=== PATIENT | male | born 1975 | race Two or more races ===

== ENCOUNTER 2024-04-30 11:39 | Inpatient (IN) | payer BC, SELFPAY ==
[2024-04-30] VITALS (11 sets, daily range): BP systolic 151–206; BP diastolic 104–122; PULSE 70–96; RESP 18–22; TEMP 36.5–37; O2SAT 96–100; BMI 30.2
--- NOTE | 2024-04-30 11:57 | XR_ITS ---
Examination: Abdomen sonogram, Limited Date and time of exam: April 30, 2024 1231 hrs. Indications: Epigastric pain nausea vomiting beginning 2 days ago Technique: Real-time trinh scale transabdominal sonographic images of the upper abdomen obtained. Findings: Negative for gallstones Normal gallbladder wall Normal common bile duct 0.3 cm Pancreas obscured by bowel gas Liver 15.7 cm fatty infiltration no focal liver lesions Normal hepatopedal portal venous flow Patent IVC Impression: Normal gallbladder
--- NOTE | 2024-04-30 11:58 | PD.EDABDPN ---
ED Abdominal Pain RME/HPI General Chief Complaint: Abdominal Pain Stated complaint: LUQ ABD PAIN, N/V, SOB Time seen by provider: 04/30/24 11:56 Arrival date/time: 04/30/24 11:39 RME / HPI RME / HPI narrative: 48-year-old male patient with significant history of hypertension, diabetes mellitus, pancreatitis in the past, came in for evaluation regarding left upper quadrant pain. Onset of symptoms since yesterday as worsening left upper quadrant pain, described as sharp pain, severity 10 out of 10 associated with nausea, vomiting. Patient told me that he was admitted here more than a year ago tried to stop drinking but drinking alcohol again. Last drink was yesterday. Denies any other complaints. Related Data Home Medications ?Medication ?Instructions ?Recorded ?Confirmed Losartan/Hydrochlorothiazide * 1 tab PO QDAY #0 tabs 12/03/16 09/28/21 (HYZAAR 100/25 *) amlodipine 5 mg tablet (Norvasc) 5 mg PO QPM #0 tabs 12/03/16 09/28/21 pantoprazole 40 mg tablet,delayed 40 mg PO QDAY 09/28/21 09/28/21 release (Protonix) Allergies Allergy/AdvReac Type Severity Reaction Status Date / Time No Known Allergies Allergy Verified 09/26/21 14:17 Review of Systems Review of Systems Narrative Review of Systems: Review of system reviewed and within normal limits except mentioned in HPI ED Exam Narrative Physical exam: VITAL SIGNS: Reviewed. GENERAL APPEARANCE: Alert and interactive, follows commands, no acute distress, HEAD AND FACE: Non-traumatic. ENT: PERRL, pink conjunctivitis, eyelid no trauma, Mucous membrane moist. NECK: Supple, nontender, no nuchal rigidity. CHEST: No tenderness, no crepitus, no paradoxical movement, no retractions. LUNGS: Clear, well ventilated, symmetric, no rales, no wheezing, no ronchi, no stridor, good breath sounds bilaterally. HEART: Regular rate, regular rhythm, no murmur, no gallops. ABDOMEN: Soft, positive bowel sounds, nondistended, no guarding left upper quadrant tenderness, no rebound, no masses, RECTAL: Deferred. GENITAL: Deferred. NEUROLOGICAL: Gross motor function intact sensory function intact, Appropriate for age. MUSCULOSKELETAL: low back nontender, full range of motion. EXTREMITIES: Nontender, full range of motion. SKIN: Color pink, dry, no rash, no lacerations, no abrasions, no contusions. LYMPHATICS: Deferred. Course Quality Measures none Orders Category Date Time Status CT Screening NOW Care 04/30/24 13:22 Active EKG (ED ONLY) *Do not use* NOW Care 04/30/24 11:[address] abdomen pelvis w con Stat Exams 04/30/24 13:22 Completed EKG (ED Only) Stat Exams 04/30/24 11:57 Ordered US gall bladder Stat Exams 04/30/24 11:57 Completed Alcohol, Blood Medical Stat Lab 04/30/24 15:03 Completed CBC Stat Lab 04/30/24 12:18 Completed Comprehensive Metabolic Panel Stat Lab 04/30/24 12:18 Completed Lipase Stat Lab 04/30/24 12:18 Completed Lipid Panel Stat Lab 04/30/24 13:23 Ordered Partial Thromboplastin Time Stat Lab 04/30/24 12:18 Completed Prothrombin Time with INR Stat Lab 04/30/24 12:18 Completed HYDROmorphone INJ [Dilaudid Inj] Med 04/30/24 13:34 Discontinued 1 mg IVP X1 ONE Ketorolac Inj [Toradol Inj] Med 04/30/24 17:07 Discontinued 30 mg IVP X1 ONE Morphine Inj Med 04/30/24 12:13 Discontinued 10 mg .ROUTE .STK-MED ONE Morphine Inj [Morphine Sulf Inj] Med 04/30/24 11:57 Discontinued 5 mg IV X1 ONE Ondansetron Inj [Zofran Inj] Med 04/30/24 11:57 Discontinued 4 mg IV X1 ONE Sodium Chloride 0.9% 1000 ml [Ns] 1,000 ml Med 04/30/24 11:58 Discontinued IV 999 mls/hr hydrALAZINE INJ [Apresoline Inj] Med 04/30/24 16:47 Discontinued 10 mg IV X1 ONE Vital Signs Vital signs: Vital Signs Temperature 97.8 F 04/30/24 11:54 Pulse Rate 91 04/30/24 11:54 Respiratory Rate 22 H 04/30/24 11:54 Blood Pressure 175/122 H 04/30/24 11:54 Pulse Oximetry (%) 98 04/30/24 11:54 Oxygen Delivery Method Room Air 04/30/24 11:54 Abdominal Pain MDM MDM Narrative MDM Narrative:: 48-year-old male patient with significant history of hypertension, diabetes mellitus, pancreatitis in the past, came in for evaluation regarding left upper quadrant pain. Onset of symptoms since yesterday as worsening left upper quadrant pain, described as sharp pain, severity 10 out of 10 associated with nausea, vomiting. Patient told me that he was admitted here more than a year ago tried to stop drinking but drinking alcohol again. Last drink was yesterday. Denies any other complaints. Patient's lipase was noted to be above 800, CT scan of the abdomen showed acute severe pancreatitis. Plan of care discussed with the patient and the need to be admitted for further management. Patient agrees with the plan Patient data External records reviewed:: None Clinical information provided by:: patient Social determinants that could affect healthcare access:: alcohol use Patient has the following chronic illnesses:: History of pancreatitis in the past How is presenting disease/condition affected by chronic disease/condition?: exacerbated by Evaluation data The following diagnostics were reviewed and interpreted by me:: lab results, radiology exam(s) and EKG tracing(s) Lab and/or radiology exams considered but not ordered:: None Interpretation Summary: EKG as interpreted by me showed normal sinus rhythm, ventricular rate of 81 bpm, no ST segment elevation depression noted. CT scan of the abdomen showed severe acute pancreatitis patient's lipase was noted to be 853 Medications / Prescriptions Medications or Prescriptions considered but not ordered:: None Medication administrations:: Medication Administration History Discontinued Medications Hydralazine HCl (Hydralazine Inj 20 Mg/Ml Vial) 10 mg IV X1 ONE Stop: 04/30/24 16:48 Last Admin: 04/30/24 16:52 Dose: 10 mg Documented By: ARISTEO Hydromorphone HCl (Hydromorphone Inj 2 Mg/Ml Vial) 1 mg IVP X1 ONE Stop: 04/30/24 13:35 Last Admin: 04/30/24 14:32 Dose: 1 mg Documented By: GEOVANNI Sodium Chloride (Ns) 1,000 mls @ 999 mls/hr IV .Q1H1M ONE Stop: 04/30/24 12:58 Last Infusion: 04/30/24 13:23 Dose: Infused Documented By: Admin: 04/30/24 12:22 Dose: 999 mls/hr Documented By: ARF Ketorolac Tromethamine (Ketorolac Inj 30 Mg/Ml Vial) 30 mg IVP X1 ONE Stop: 04/30/24 17:08 Last Admin: 04/30/24 17:11 Dose: 30 mg Documented By: EH Morphine Sulfate (Morphine Sulf Inj 4 Mg/Ml Vial) 5 mg IV X1 ONE Stop: 04/30/24 11:58 Last Admin: 04/30/24 12:22 Dose: 5 mg Documented By: ARF Morphine Sulfate (Morphine Sulf Inj 10 Mg/Ml Vial) Confirm Administered Dose 10 mg .ROUTE .STK-MED ONE Stop: 04/30/24 12:14 Last Admin: 04/30/24 12:22 Dose: Not Given Documented By: ARF Non-Admin Reason: Override Medication Ondansetron HCl (Ondansetron Inj 2 Mg/Ml Inj 2 Ml) 4 mg IV X1 ONE; Protocol Stop: 04/30/24 11:58 Last Admin: 04/30/24 12:21 Dose: 4 mg Documented By: ARF IV fluids, Zofran, morphine, Toradol, Dilaudid Consultations Consultation(s) initiated? (list below): No Diagnosis Differential diagnosis abdominal pain: abdominal pain, pancreatitis and small bowel obstruction Most likely diagnosis given after review of the tests above:: Acute pancreatitis Admission Indicated Admission indicated?: indicated Admission Request Was there a request for admission?: Yes Admission Attestation Admission request attestation: Discussed case with [Dr. Sosa] from Hospitalist service regarding admission. Discussed patients ED course, exam findings, labs, and radiology results. The Hospitalist [agrees] to accept the patient for admission. Disposition Plan Disposition Plan: Admit Discharge Plan Plan Patient Disposition: Admit Acute Care w/in Hospital Prescriptions/Referrals Prescriptions/Med Rec: No Action amlodipine [Norvasc] 5 MG tablet 5 mg PO QPM Qty: 0 Losartan/Hydrochlorothiazide * (HYZAAR 100/25 *) 1 EACH tablet 1 tab PO QDAY Qty: 0 pantoprazole [Protonix] 40 mg Tablet,Delayed Release (Dr/Ec) 40 mg PO QDAY Referrals: Tripp Aguiar MD [Primary Care Provider] - In 1 week Problem List Clinical Impression: Pancreatitis Patient/Caregiver Discharge Instructions Print Language: Georgian Stand Alone Forms: Kelley Award Info., Patient Portal Info Letter
[2024-04-30] MEDS: ONDANSETRON INJ 2 MG/ML INJ 2 ML 4 MG IV (12:21)
[2024-04-30] MEDS: MORPHINE SULF INJ 4 MG/ML VIAL 5 MG IV (12:22)
[2024-04-30] MEDS: SODIUM CHLORIDE 0.9% 1000 ML 1,000 ML 999 ML IV (12:22)
[2024-04-30 12:37] LABS: Basophils % (Auto) 0 % (0-2.5); Eosinophils % (Auto) 0 % (0-10); Hematocrit 46.7 % (41.0-53.0); Hemoglobin 16.8 g/dL (13.5-16.0); Immature Granulocytes % (Auto) 0 % (0-0); Immature Granulocytes Auto 0.03 Thou/mm3 (0.00-0.00); Lymphocytes # (Auto) 0.5 Thou/mm3 (1.0-4.8); Lymphocytes % (Auto) 5 % (10-50); Mean Corpuscular Hemoglobin 32.9 pg (25.0-35.0); Mean Corpuscular Volume 92 fL (80-100); Monocytes # (Auto) 0.4 Thou/mm3 (0.0-0.8); Monocytes % (Auto) 4 % (0-12); Neutrophils # (Auto) 9.6 Thou/mm3 (1.8-7.7); Neutrophils % (Auto) 91 % (37-80); Nucleated Red Blood Cell % 0 /100 WBC (0); Platelet Count 117 Thou/mm3 (140-440); RDW Standard Deviation 45.1 fL (35.1-43.9); White Blood Count 10.6 Thou/mm3 (3.8-10.6)
[2024-04-30 13:01] LABS: Prothrombin Time 11.1 Seconds (9.0-12.2)
[2024-04-30 13:12] LABS: Alanine Aminotransferase 40 U/L (10-49); Albumin, Serum 4.9 gm/dL (3.5-5.0); Albumin/Globulin Ratio 1.8 (1.2-2.2); Alkaline Phosphatase 72 U/L (46-116); Anion Gap 14 (7-16); Aspartate Amino Transferase 58 U/L (0-34); BUN/Creatinine Ratio 8 Ratio (12-20); Bilirubin,Total 1.3 mg/dL (0.3-1.2); Blood Urea Nitrogen 11 mg/dL (9-23); Calcium 9.6 mg/dL (8.3-10.6); Calcium (Corrected) 9.6 mg/dL (8.5-10.1); Carbon Dioxide 23.1 mMol/L (20.0-31.0); Chloride 94 mMol/L (98-107); Creatinine (Component) 1.4 mg/dL (0.6-1.3); Estimated Creatinine Clearance 74.1 mL/min (>60); Globulin 2.7 gm/dL (2.3-3.5); Glucose 241 mg/dL (74-106); Lipase 853 U/L (12-53); Osmolality,Calculated 270 (275-295); Potassium 4.9 mMol/L (3.4-5.1); Sodium 131 mMol/L (136-145); Total Protein 7.6 gm/dL (5.7-8.2); eGFR > 60 See Note
--- NOTE | 2024-04-30 13:22 | XR_ITS ---
Examination: CT abdomen with intravenous contrast CT pelvis with intravenous contrast 2-D coronal reconstructions 2-D sagittal reconstructions Date and time of exam:April 30, 2024 1637 hrs. Indications: Left upper abdominal pain beginning 3 days ago, history severe acute pancreatitis Comparison: September 26, 2021. CTDI: vol (mGy) 9.91 DLP: (mGycm) 603 Technique: Multiple axial sections of the abdomen and pelvis have been obtained. 64 slice high-resolution scanner used. 3 mm axial sections have been obtained, post intravenous injection 60 cc [id number] 2-D sagittal, coronal reconstructions obtained. Low dose protocols were performed. One or more of the following dose reduction techniques were used; automated exposure control, adjustment of the mA and/or KV according to patient size, use of iterative reconstruction technique. Findings: Diffuse fatty infiltration throughout the liver No gallstones No splenic mass Marked edema surrounding the pancreas no pseudocyst No renal or ureteral calculi, no hydronephrosis Aorta normal size No bowel obstruction Normal size appendix No significant prostatomegaly Penile prosthetic device Fat-containing small inguinal hernias Impression: Severe acute pancreatitis
[2024-04-30] MEDS: HYDROmorphone INJ 2 MG/ML VIAL 1 MG IVP (14:32)
--- NOTE | 2024-04-30 14:46 | PC.NURSE ---
Pt. here from home to bed 12, pt. states his back went out yesterday so he drank more wine than he should have, pt. states he started vomiting, pt. states he knew he shouldn't have drank that much wine. Pt. states his pain is to left upper abdominal quadrant, pt. holding left upper abdominal quadrant. Pt. laying in bed with his sunglasses on.
[2024-04-30 15:29] LABS: Alcohol, Blood Medical < 3.0 mg/dL (0-10.0)
--- NOTE | 2024-04-30 16:21 | PC.NURSE ---
Pt. up to RR.
[2024-04-30] MEDS: hydrALAZINE INJ 20 MG/ML VIAL 10 MG IV (16:52)
[2024-04-30] MEDS: KETOROLAC INJ 30 MG/ML VIAL IVP (17:11)
[2024-04-30 21:33] LABS: Cardiac Risk Estimate 2.4 RATIO (4.0-6.7); Cholesterol 177 mg/dL (132-200); HDL Cholesterol 73 mg/dL (40-60); LDL Cholesterol,Calculated 87 mg/dL (0-130); Triglycerides 83 mg/dL (30-150)
--- NOTE | 2024-04-30 21:50 | PD.RESHP ---
Documentation for date of: 04/30/24 [facility] History of Present Illness Chief complaint: Nausea, vomiting, left upper abdominal pain x 1 day History of present illness: Patient is a 48-year-old male with past medical history of alcohol use disorder, type 2 diabetes, hypertension, depression, and anxiety who presented to the ED on 04/30/2024 with 1 day of nausea, vomiting, and constant left upper quadrant abdominal pain radiating to the mid-abdomen, following excessive consumption of alcohol. Patient reports poor PO intake due to the pain. Last drink was a half glass of wine around 12 AM, 04/30/2024. Last vomited this morning however has been more dry heaves. Vomitus was clear with no evidence of blood. Last bowel movement was yesterday and normal. He reports drinking an average of about 2-3 bottles of wine daily and states that he has been drinking this much to self-medicate due to chronic back pain and to help him sleep. He was admitted for pancreatitis 2 years ago after a similar scenario. He does endorse a history of alcohol withdrawal tremors. ED Course: -Initial vitals were BP 175/122, HR 91, RR 22, Temp 97.8, saturating well on room air. -Labs significant for lipase level of 853. Triglycerides normal. Other labs included WBC 10.6 with neutrophilic shift, Hgb 16.8, Plt 117k, mild hyponatremia corrected 133, creatinine 1.4, total bilirubin 1.3, mild AST elevation 58. -Alcohol level <3.0 -CT abdomen/pelvis with contrast showed severe acute pancreatitis -Gallbladder US showed normal gallbladder -In the ED, patient was given ondansetron 4 mg IV x1, 1 L NS, morphine 5 mg IV x1, hydromorphone 1 mg x1, hydralazine 10 mg IV x1, ketorolac 30 mg IV x1 -Patient was admitted for further management of acute pancreatitis Review of Systems Review of systems otherwise negative except what is mentioned above. Past Medical History Past Medical History Comments PMH COMMENT: Past Medical History: Alcohol use disorder, type 2 diabetes, hypertension, depression, and anxiety Family History: Brother () with alcohol use disorder, liver and cardiac disorders. Diabetes in mother Surgical History: Lower back surgery, umbilical hernia repair, right wrist repair, penis implant Social History: History of smoking quit 10 years ago, occasional cigar use, current alcohol use 2-3 bottles wine per day, denies recreational drug use Current Medications: Losartan-hydrochlorothiazide 100-12.5 mg qday, amlodipine 10 mg qday, carvedilol 3.125 mg BID, metformin 500 mg BID, hydrocodone-acetaminophen 5-325 mg q6h prn (Source: Pharmacy recently prescribed) Allergies: No known drug allergies Exam Vital Signs Temp Pulse Resp BP Pulse Ox O2 Del Method 97.7 F 87 18 183/112 H 98 Room Air 04/30/24 20:06 04/30/24 20:06 04/30/24 20:06 04/30/24 20:06 04/30/24 20:06 04/30/24 20:06 Narrative Exam Physical Exam General: Awake and in no acute distress. Conversational and non-toxic appearing. HEENT: Normocephalic, atraumatic, mucous membranes moist. Heart: Regular rate and rhythm, no murmurs. Lungs: Clear to auscultation with no wheezing or crackles. Abdomen: Soft abdomen but with significant guarding, tenderness to palpation left upper quadrant, positive bowel sounds. ?No rebound tenderness. Neurologic: Alert and oriented x3, no gross neurological deficit, and patient able to move all 4 extremities. Extremities: No edema. Skin: No rash or ecchymoses. Results: Labs 04/30/24 12:18 04/30/24 12:18 Labs: Short CBC 04/30/24 Range/Units 12:18 WBC 10.6 (3.8-10.6) Thou/mm3 Hgb 16.8 H (13.5-16.0) g/dL Hct 46.7 (41.0-53.0) % Plt Count 117 L (140-440) Thou/mm3 [facility] 04/30/24 12:18 Sodium 131 L Potassium 4.9 Chloride 94 L Carbon Dioxide 23.1 BUN 11 Creatinine 1.4 H Glucose 241 H Calcium 9.6 Liver Function 04/30/24 Range/Units 12:18 Total Bilirubin 1.3 H (0.3-1.2) mg/dL AST 58 H (0-34) U/L ALT 40 (10-49) U/L Alkaline Phosphatase 72 (46-116) U/L Albumin 4.9 (3.5-5.0) gm/dL Quality Measures Quality Measures none Medications Home Medications and Allergies Home Medications ?Medication ?Instructions ?Recorded ?Confirmed ?Type Losartan/Hydrochlorothiazide * 1 tab PO QDAY #0 tabs 12/03/16 04/30/24 History (HYZAAR / *) amlodipine 5 mg tablet (Norvasc) 5 mg PO QPM #0 tabs 12/03/16 04/30/24 History pantoprazole 40 mg tablet,delayed 40 mg PO QDAY 09/28/21 04/30/24 History release (Protonix) Allergies Allergy/AdvReac Type Severity Reaction Status Date / Time No Known Allergies Allergy Verified 09/26/21 14:17 Visit Medications Acetaminophen (Acetaminophen 325 Mg Tablet) 650 mg PO Q6H PRN PRN Reason: Fever >100.4 or Pain 1-10 Stop: 05/30/24 21:42 Hydrocodone Bitart/Acetaminophen (Hydrocodone/Apap 5/325 Tablet) 1 tab PO Q4HR PRN PRN Reason: PAIN SCALE 4-10(Mod-Sev Stop: 05/05/24 21:42 Heparin Sodium (Porcine) (Heparin Sod Inj 5000 Unit/Ml Vial) 5,000 unit SC Q12HR HEIKE Stop: 05/15/24 08:59 Sodium Chloride (Ns) 1,000 mls @ 150 mls/hr IV .Q6H40M [facility] Stop: 05/30/24 21:44 Morphine Sulfate (Morphine Sulf Inj 4 Mg/Ml Vial) 2 mg IVP Q4H PRN PRN Reason: PAIN SCALE 7-10 (Severe Stop: 05/05/24 21:42 Ondansetron HCl (Ondansetron Inj 2 Mg/Ml Inj 2 Ml) 4 mg IV Q6H PRN; Protocol PRN Reason: NAUSEA OR VOMITING Stop: 05/30/24 21:42 Discontinued Medications Hydralazine HCl (Hydralazine Inj 20 Mg/Ml Vial) 10 mg IV X1 ONE Stop: 04/30/24 16:48 Last Admin: 04/30/24 16:52 Dose: 10 mg Hydromorphone HCl (Hydromorphone Inj 2 Mg/Ml Vial) 1 mg IVP X1 ONE Stop: 04/30/24 13:35 Last Admin: 04/30/24 14:32 Dose: 1 mg Sodium Chloride (Ns) 1,000 mls @ 999 mls/hr IV .Q1H1M ONE Stop: 04/30/24 12:58 Last Infusion: 04/30/24 13:23 Dose: Infused Ketorolac Tromethamine (Ketorolac Inj 30 Mg/Ml Vial) 30 mg IVP X1 ONE Stop: 04/30/24 17:08 Last Admin: 04/30/24 17:11 Dose: 30 mg Morphine Sulfate (Morphine Sulf Inj 4 Mg/Ml Vial) 5 mg IV X1 ONE Stop: 04/30/24 11:58 Last Admin: 04/30/24 12:22 Dose: 5 mg Ondansetron HCl (Ondansetron Inj 2 Mg/Ml Inj 2 Ml) 4 mg IV X1 ONE; Protocol Stop: 04/30/24 11:58 Last Admin: 04/30/24 12:21 Dose: 4 mg Assessment & Plan Plan Patient is a 48-year-old male with past medical history of alcohol use disorder, type 2 diabetes, hypertension, depression, and anxiety who presented to the ED on 04/30/2024 with 1 day of nausea, vomiting, and constant left upper quadrant abdominal pain radiating to the mid-abdomen following alcohol use. #Acute pancreatitis Patient presented with 1 day of nausea, vomiting, and acute left upper quadrant abdominal pain following excessive alcohol consumption. CT abdomen/pelvis with contrast showed severe acute pancreatitis Lipase level was 853 Patient met 3/3 diagnostic criteria for acute pancreatitis -Start IV fluids NS at 150 ml/hr -Morphine 2 mg IV q4h as needed for severe pain -Hydrocodone-acetaminophen 5-325 mg PO q6h as needed for moderate to severe pain #KARLA, likely prerenal Creatinine 1.4 on admission, baseline appears to be 1.0-1.2 based on prior labs. -IV fluids as above -Monitor CMP #Hyperbilirubinemia Total bilirubin 1.3 on admission. Likely secondary to cholestasis in the setting of acute pancreatitis. -Monitor CMP #Alcohol use disorder Patient endorses consumption of 2-3 bottles of wine on average daily. -CIWA protocol with prn PO lorazepam -Thiamine 100 mg PO BID -Folate 1 mg PO BID -Counseling on alcohol cessation #History of hypertension Home medications include losartan-hctz, amlodipine, and carvedilol -Resume home medications #History of type 2 diabetes On admission initial glucose 241. Last A1c 7.7 in July 2023. Patient takes metformin for diabetes at home. -Held home medications -Bedside blood glucose checks ACHS -Insulin lispro sliding scale sensitive, adjusted as necessary -Carb consistent low diet DVT prophylaxis: Heparin 5,000 U subQ GI prophylaxis: Pantoprazole 40 mg PO qday Diet: Clear liquid, carb consistent low Ferrer: None Lines: Peripheral IV Antibiotics: None CODE STATUS: FULL Reason for hospitalization: Acute pancreatitis Patient plan of care was discussed with the attending physician, Dr. Gómez. Sowmya Sosa, PGY-2 Attending Provider Attestation/Addendum Patient was seen and examined in the ER. Complains of abdominal pain and is mostly in the epigastric region radiating to his back. He had nausea vomiting earlier. He denies fever. He is not short of breath. He drinks alcohol. CT scan showed severe acute pancreatitis. Patient was diagnosed with acute pancreatitis probably related to alcohol use. He will be admitted.
--- NOTE | 2024-04-30 22:29 | PC.NURSE ---
Spoke to resident Finn, informed her of pt's bp 184/108 hr:89. provider given new orders.
[2024-04-30] MEDS: MORPHINE SULF INJ 10 MG/ML VIAL 2 MG IVP (22:47)
[2024-04-30] MEDS: hydrALAZINE HCL 10 MG TABLET PO (23:10)
[2024-04-30] MEDS: LORazepam 0.5 MG TABLET PO (23:10)
[2024-05-01] VITALS (16 sets, daily range): BP systolic 135–187; BP diastolic 81–118; PULSE 88–117; RESP 16–19; TEMP 36.1–37.2; O2SAT 95–100; BMI 30.2
--- NOTE | 2024-05-01 00:28 | PC.NURSE ---
INFORMED DR ROCK OF PT'S BP NOT IMPROVING AFTER GIVEN HYDRALAZINE 10MG PO. INFORMED OF BP CURRENTLY 187/118 HR:88. AWAITING NEW ORDERS
[2024-05-01] MEDS: LABETALOL INJ 5 MG/ML VIAL 20 ML 10 MG IVP (00:53)
[2024-05-01] MEDS: SODIUM CHLORIDE 0.9% 1000 ML 1,000 ML 150 ML IV (00:53)
[2024-05-01] MEDS: MORPHINE SULF INJ 10 MG/ML VIAL 2 MG IVP ×4 (01:15→19:25)
[2024-05-01] MEDS: hydrALAZINE HCL 25 MG TABLET PO ×3 (05:19→21:45)
[2024-05-01 05:54] LABS: Basophils % (Auto) 0 % (0-2.5); Eosinophils % (Auto) 0 % (0-10); Hematocrit 45.2 % (41.0-53.0); Immature Granulocytes % (Auto) 1 % (0-0); Immature Granulocytes Auto 0.07 Thou/mm3 (0.00-0.00); Lymphocytes # (Auto) 0.6 Thou/mm3 (1.0-4.8); Lymphocytes % (Auto) 4 % (10-50); Mean Corpuscular HGB Conc 35.4 g/dl (31.0-37.0); Mean Corpuscular Hemoglobin 33.1 pg (25.0-35.0); Mean Corpuscular Volume 93 fL (80-100); Monocytes # (Auto) 0.8 Thou/mm3 (0.0-0.8); Monocytes % (Auto) 6 % (0-12); Neutrophils # (Auto) 11.9 Thou/mm3 (1.8-7.7); Neutrophils % (Auto) 89 % (37-80); Nucleated Red Blood Cell % 0 /100 WBC (0); Platelet Count 106 Thou/mm3 (140-440); RDW Standard Deviation 46.5 fL (35.1-43.9); Red Blood Count 4.84 Miln/mm3 (4.50-5.90); White Blood Count 13.3 Thou/mm3 (3.8-10.6)
[2024-05-01 06:19] LABS: Alanine Aminotransferase 29 U/L (10-49); Albumin, Serum 4.6 gm/dL (3.5-5.0); Albumin/Globulin Ratio 1.9 (1.2-2.2); Alkaline Phosphatase 76 U/L (46-116); Anion Gap 7 (7-16); Aspartate Amino Transferase 29 U/L (0-34); BUN/Creatinine Ratio 10 Ratio (12-20); Bilirubin,Total 0.8 mg/dL (0.3-1.2); Blood Urea Nitrogen 15 mg/dL (9-23); Calcium 9.2 mg/dL (8.3-10.6); Calcium (Corrected) 9.2 mg/dL (8.5-10.1); Carbon Dioxide 29.8 mMol/L (20.0-31.0); Chloride 96 mMol/L (98-107); Creatinine (Component) 1.5 mg/dL (0.6-1.3); Estimated Creatinine Clearance 69.3 mL/min (>60); Globulin 2.4 gm/dL (2.3-3.5); Glucose 174 mg/dL (74-106); Magnesium 1.5 mg/dL (1.6-2.6); Osmolality,Calculated 271 (275-295); Phosphorous 2.9 mg/dL (2.4-5.1); Potassium 4.6 mMol/L (3.4-5.1); Sodium 133 mMol/L (136-145); eGFR 58 See Note
[2024-05-01] MEDS: INSULIN LISPRO (AdmeLOG) 1 UNIT/0.01 ML UNIT SC ×3 (07:51→17:14)
[2024-05-01] MEDS: SODIUM CHLORIDE 0.9% 1000 ML 1,000 ML 200 ML IV ×3 (07:52→19:25)
[2024-05-01] MEDS: THIAMINE 100 MG TABLET PO ×2 (08:32→21:42)
[2024-05-01] MEDS: PANTOPRAZOLE 40 MG TABLET PO (08:32)
[2024-05-01] MEDS: FOLIC ACID 1 MG TABLET PO ×2 (08:32→21:42)
--- NOTE | 2024-05-01 08:44 | PC.NURSE ---
Spoke to Dr Anderson to clarify order for second dose of Folic Acid 1 mg IVP and Thiamine 100 mg IVP. I already gave patient Folic Acid 1 mg PO and Thiamine 100 [address] PO at 0832. Dr Anderson said to go ahead and give Folic Acid 1 mg IVP and Thiamine 100 mg IVP. Patient's Plt count is 106 this morning, ok to give heparin dose per Dr Anderson. RN to give medication as ordered.
[2024-05-01] MEDS: HEPARIN SOD INJ 5000 UNIT/ML VIAL SC (08:45)
[2024-05-01] MEDS: THIAMINE INJ 100 MG/ML VIAL 2 ML IVP (08:47)
[2024-05-01] MEDS: Magnesium Sulfate 2 GM Ivpb 2 GM/50 ML BAG IV (08:49)
--- NOTE | 2024-05-01 09:25 | ESPR_ITS ---
<Statement entered by Daniela Kuo MD - 05/09/24 16:12> I reviewed above note and agree with findings and plans. I have also personally examined the patient with medicine team and went over assessment and plan with medical team including supervisor international reservations and resident physician. Documentation for date of: 05/01/24 Subjective Subjective Interval history: Patient seen today at the bedside fine awake, alert, oriented x 3. States some mild epigastric tenderness, currently CIWA: 2. Vital signs significant for some hypertension, nifedipine 10 mg 3 times daily ordered. At this time we will continue with current management with aggressive IV hydration for acute pancreatitis. As well as CIWA protocol including folate and thiamine and as needed Ativan. Exam Vital Signs Temp Pulse Resp BP Pulse Ox O2 Del Method 98.3 F 96 16 163/97 H 100 Room Air 05/01/24 07:58 05/01/24 07:58 05/01/24 07:58 05/01/24 07:58 05/01/24 07:58 05/01/24 07:58 Narrative Exam Physical Exam GENERAL: NAD, NC/AT, responsive/cooperative. A&Ox3 HEENT: Moist mucosa. Eyes open, symmetrical, & clear CARDIO: No chest pain on palpation. Heart RRR, no obvious murmurs PULM: No noted coughing/dyspnea. Lungs CTA B/L, no R/W/R GI: Abdomen soft, nondistended, mild tenderness in epigastric region with palpation. BSx4 SKIN/MSK/EXT: No wounds/rashes/edema/amputations, no pain on palpation. Pedal pulses present B/L NEURO: AAOx3, no focal neuro deficits, able to move all 4 extremities Objective Labs 05/01/24 05:08 05/01/24 05:08 Labs: Laboratory Results - last 24 hr 04/30/24 04/30/24 04/30/24 12:18 13:00 15:03 WBC 10.6 RBC 5.10 Hgb 16.8 H Hct 46.7 MCV 92 MCH 32.9 MCHC 36.0 RDW Std Deviation 45.1 H Plt Count 117 L Neut % (Auto) 91 H Lymph % (Auto) 5 L Garrett % (Auto) 4 Eos % (Auto) 0 Baso % (Auto) 0 Neut # (Auto) 9.6 H Lymph # (Auto) 0.5 L Garrett # (Auto) 0.4 Eos # (Auto) 0.0 Baso # (Auto) 0.0 Immature Gran # (Auto) 0.03 H Absolute Nucleated RBC 0.00 Immature Gran % 0 Nucleated RBC % 0 PT 11.1 INR 1.0 APTT 25.0 Sodium 131 L Potassium 4.9 Chloride 94 L Carbon Dioxide 23.1 Anion Gap 14 BUN 11 Creatinine 1.4 H Estim Creat Clear Calc 74.1 eGFR > 60 BUN/Creatinine Ratio 8 L Glucose 241 H Calculated Osmolality 270 L Calcium 9.6 Corrected Calcium 9.6 Phosphorus Magnesium Total Bilirubin 1.3 H AST 58 H ALT 40 Alkaline Phosphatase 72 Total Protein 7.6 Albumin 4.9 Globulin 2.7 Albumin/Globulin Ratio 1.8 Triglycerides 83 Cholesterol 177 LDL Cholesterol, Calc 87 HDL Cholesterol 73 H Cholesterol/HDL Ratio 2.4 L Lipase 853 H Ethyl Alcohol < 3.0 05/01/24 05:08 WBC 13.3 H RBC 4.84 Hgb 16.0 Hct 45.2 MCV 93 MCH 33.1 MCHC 35.4 RDW Std Deviation 46.5 H Plt Count 106 L Neut % (Auto) 89 H Lymph % (Auto) 4 L Garrett % (Auto) 6 Eos % (Auto) 0 Baso % (Auto) 0 Neut # (Auto) 11.9 H Lymph # (Auto) 0.6 L Garrett # (Auto) 0.8 Eos # (Auto) 0.0 Baso # (Auto) 0.0 Immature Gran # (Auto) 0.07 H Absolute Nucleated RBC 0.00 Immature Gran % 1 H Nucleated RBC % 0 PT INR APTT Sodium 133 L Potassium 4.6 Chloride 96 L Carbon Dioxide 29.8 Anion Gap 7 BUN 15 Creatinine 1.5 H Estim Creat Clear Calc 69.3 eGFR 58 L BUN/Creatinine Ratio 10 L Glucose 174 H D Calculated Osmolality 271 L Calcium 9.2 Corrected Calcium 9.2 Phosphorus 2.9 Magnesium 1.5 L Total Bilirubin 0.8 D AST 29 ALT 29 Alkaline Phosphatase 76 Total Protein 7.0 Albumin 4.6 Globulin 2.4 Albumin/Globulin Ratio 1.9 Triglycerides Cholesterol LDL Cholesterol, Calc HDL Cholesterol Cholesterol/HDL Ratio Lipase Ethyl Alcohol Quality Measures Quality Measures none Assessment & Plan Assessment Current Active Medications: Generic Name Dose Route Start Last Admin Trade Name Freq PRN Reason Stop Dose Admin Acetaminophen 650 mg 04/30/24 21:43 Acetaminophen 325 Mg Tablet PO 05/30/24 21:42 Q6H PRN Fever >100.4 or Pain 1-10 Hydrocodone Bitart/Acetaminophen 1 tab 04/30/24 21:43 Hydrocodone/Apap 5/325 Tablet PO 05/05/24 21:42 Q4HR PRN PAIN SCALE 4-10(Mod-Sev Dextrose 25 ml 04/30/24 22:03 Dextrose 50%-Water Inj 50 Ml Syringe IV 05/30/24 22:02 Q15MIN PRN BG 50-70 responsive npo pt Dextrose 50 ml 04/30/24 22:03 Dextrose 50%-Water Inj 50 Ml Syringe IV 05/30/24 22:02 Q15MIN PRN BG <50 OR BG <70 & pt unresponsive Folic Acid 1 mg 05/01/24 09:00 05/01/24 08:32 Folic Acid 1 Mg Tablet PO 05/06/24 08:59 1 mg BID HEIKE Administration Glucagon 1 mg 04/30/24 22:03 Glucagon Inj 1 Mg Vial IM Q15MIN PRN BG <70, and no IV access Heparin Sodium (Porcine) 5,000 unit 05/01/24 09:00 05/01/24 08:45 Heparin Sod Inj 5000 Unit/Ml Vial SC 05/15/24 08:59 5,000 unit Q12HR HEIKE Administration Hydralazine HCl 25 mg 05/01/24 06:00 05/01/24 05:19 Hydralazine Hcl 25 Mg Tablet PO 05/31/24 05:59 25 mg TID HEIKE Administration Sodium Chloride 1,000 mls @ 200 mls/hr 05/01/24 07:40 05/01/24 07:52 Ns IV 05/02/24 07:39 200 mls/hr .Q5H HEIKE Administration Magnesium Sulfate 2 gm in 50 mls @ 25 mls/hr 05/01/24 08:22 05/01/24 08:49 Magnesium Sulfate Ivpb IV 05/01/24 10:21 25 mls/hr X1 ONE Administration Insulin Human Lispro 0 unit 05/01/24 07:30 05/01/24 07:51 Insulin Lispro (Admelog) 1 Unit/0.01 Ml Unit SC 05/31/24 07:29 2 unit ACHS HEIKE Administration Protocol Lorazepam 0.5 mg 04/30/24 22:05 04/30/24 23:10 Lorazepam 0.5 Mg Tablet PO 05/05/24 22:04 0.5 mg Q4HR PRN Administration CIWA Score 2-6 Lorazepam 1 mg 04/30/24 22:05 Lorazepam 0.5 Mg Tablet PO 05/05/24 22:04 Q4HR PRN CIWA SCORE 7-11 Lorazepam 2 mg 04/30/24 22:05 Lorazepam 0.5 Mg Tablet PO 05/05/24 22:04 Q4HR PRN CIWA SCORE 12-15 Morphine Sulfate 2 mg 05/01/24 00:57 05/01/24 05:19 Morphine Sulf Inj 10 Mg/Ml Vial IVP 05/02/24 15:00 2 mg Q2H PRN Administration PAIN SCALE 7-10 (Severe Nifedipine 10 mg 05/01/24 08:45 Nifedipine 10 Mg Capsule PO 05/31/24 08:44 TID HEIKE Ondansetron HCl 4 mg 04/30/24 21:43 Ondansetron Inj 2 Mg/Ml Inj 2 Ml IV 05/30/24 21:42 Q6H PRN NAUSEA OR VOMITING Protocol Pantoprazole Sodium 40 mg 05/01/24 09:00 05/01/24 08:32 Pantoprazole 40 Mg Tablet PO 05/31/24 08:59 40 mg QDAY HEIKE Administration Thiamine HCl 100 mg 05/01/24 09:00 05/01/24 08:32 Thiamine 100 Mg Tablet PO 05/06/24 08:59 100 mg BID HEIKE Administration Plan 48-year-old male with past medical history of alcohol use disorder, type 2 diabetes, hypertension, depression, and anxiety who presented to the ED on 04/30/2024 with 1 day of nausea, vomiting, and constant left upper quadrant abdominal pain radiating to the mid-abdomen following alcohol use. #Acute pancreatitis Likely in the setting of alcohol use Patient drinks 2-3 bottles of wine per day and suddenly developed pain in the mid abdomen radiating to the back Patient with previous admissions for acute pancreatitis due to alcohol use CT scan of the abdomen pelvis was done showed Severe acute pancreatitis Gallbladder ultrasound negative Lipase 853 -Aggressive IV hydration NS at 200 mL/h -Morphine 2 mg IV every 4 hour as needed for pain -[place] p.o. every 6 as needed -On clear liquid diet advance as tolerated # Pre-renal KARLA Patient states having decreased p.o. intake past few days only drinking 2-3 bottles of wine per day Creatinine 1.5, baseline appears to be 1.0-1.2 based on prior labs. -Already on IV fluids -Avoid nephrotoxins -Renally dose medications #Hyperbilirubinemia-resolved Total bilirubin 1.3 on admission. Likely secondary to cholestasis in the setting of acute pancreatitis. Repeat CMP showed normal T. bili -Monitor at this time #Alcohol use disorder Patient endorses consumption of 2-3 bottles of wine on average daily. Patient has history of alcohol tremors On CIWA protocol;CIWA score today: 2 -Lorazepam p.o. as needed -Thiamine 100 mg PO BID -Folate 1 mg PO BID -Monitor for withdrawal symptoms -Counseling on alcohol cessation #History of hypertension Home medications include losartan-hctz, amlodipine, and carvedilol Losartan-HCTZ on hold at this time due to KARLA -Hydralazine 25 mg p.o. 3 times daily -Nifedipine 10 mg 3 times daily #History of type 2 diabetes Last A1c 7.7, glucose 241 on admission. Patient takes metformin at home. -Sliding scale insulin -Hypoglycemia protocol in place Case discussed with my senior Dr. Lopez PGY-[address] Ayaan Martin MD PGY-1 Disposition: Medsurg Fluids: NS at 200 mL/h Feeding: Clear liquid diet Thrombo prophylaxis: Heparin Gastric Ulcer prophylaxis: Pantoprazole CODE STATUS: Full code Senior resident attestation: Patient evaluated and examined at the bedside, plan of care discussed with rest of the team including my attending physician, except as noted. Patient counseled regarding alcohol abstinence, demonstrated understanding, agrees to work on alcohol abstinence. Reports pain improving, able to tolerate liquid diet. Advance diet as tolerated. Currently on IV fluids, reportedly last drink last midnight, on CIWA protocol, currently CIWA score 2. Noted to be hypertensive this a.m., medication regimen adjusted. Noted mild KARLA, continue with IV fluids and reevaluate, urine output within normal range. Triglycerides within normal range. Serum calcium within normal range. #Acute alcoholic pancreatitis #Alcohol abuse disorder #Hypertension #KARLA John PGY2
[2024-05-01] MEDS: NIFEdipine 10 MG CAPSULE PO ×3 (09:54→21:42)
--- NOTE | 2024-05-01 10:46 | CHAP ---
Patient was visited by the Spiritual Care Volunteer who prayed for them. (Volunteer was in the hospital from 09:50-10:46)
--- NOTE | 2024-05-01 12:26 | PC.NURSE ---
Patient scored a 5 on CIWA, refused Ativan at this time.
[2024-05-01] MEDS: LORazepam 0.5 MG TABLET PO (21:53)
[2024-05-01] MEDS: HYDROcodone/APAP 5/325 TABLET 1 TAB PO (21:54)
[2024-05-02] VITALS (9 sets, daily range): BP systolic 140–156; BP diastolic 87–101; PULSE 102–118; RESP 15–95; TEMP 36.5–37.3; O2SAT 93–98; BMI 30.3
[2024-05-02] MEDS: SODIUM CHLORIDE 0.9% 1000 ML 1,000 ML 200 ML IV ×2 (01:03→05:40)
[2024-05-02] MEDS: hydrALAZINE HCL 25 MG TABLET PO ×2 (05:39→14:34)
[2024-05-02] MEDS: NIFEdipine 10 MG CAPSULE PO ×2 (05:39→14:33)
[2024-05-02 06:14] LABS: Basophils % (Auto) 0 % (0-2.5); Eosinophils % (Auto) 0 % (0-10); Hemoglobin 14.2 g/dL (13.5-16.0); Immature Granulocytes % (Auto) 1 % (0-0); Immature Granulocytes Auto 0.06 Thou/mm3 (0.00-0.00); Lymphocytes # (Auto) 0.7 Thou/mm3 (1.0-4.8); Lymphocytes % (Auto) 6 % (10-50); Mean Corpuscular HGB Conc 35.5 g/dl (31.0-37.0); Mean Corpuscular Hemoglobin 33.2 pg (25.0-35.0); Mean Corpuscular Volume 94 fL (80-100); Monocytes # (Auto) 0.9 Thou/mm3 (0.0-0.8); Monocytes % (Auto) 7 % (0-12); Neutrophils % (Auto) 86 % (37-80); Nucleated Red Blood Cell % 0 /100 WBC (0); Platelet Count 94 Thou/mm3 (140-440); RDW Standard Deviation 46.5 fL (35.1-43.9); Red Blood Count 4.28 Miln/mm3 (4.50-5.90); White Blood Count 11.6 Thou/mm3 (3.8-10.6)
[2024-05-02 06:36] LABS: Alanine Aminotransferase 19 U/L (10-49); Albumin, Serum 3.9 gm/dL (3.5-5.0); Albumin/Globulin Ratio 1.8 (1.2-2.2); Alkaline Phosphatase 61 U/L (46-116); Anion Gap 7 (7-16); Aspartate Amino Transferase 17 U/L (0-34); BUN/Creatinine Ratio 14 Ratio (12-20); Bilirubin,Total 0.9 mg/dL (0.3-1.2); Blood Urea Nitrogen 14 mg/dL (9-23); Calcium 8.2 mg/dL (8.3-10.6); Calcium (Corrected) 8.3 mg/dL (8.5-10.1); Carbon Dioxide 25.7 mMol/L (20.0-31.0); Chloride 97 mMol/L (98-107); Estimated Creatinine Clearance 103.9 mL/min (>60); Globulin 2.2 gm/dL (2.3-3.5); Glucose 149 mg/dL (74-106); Magnesium 1.7 mg/dL (1.6-2.6); Osmolality,Calculated 264 (275-295); Phosphorous 1.9 mg/dL (2.4-5.1); Potassium 3.7 mMol/L (3.4-5.1); Sodium 130 mMol/L (136-145); Total Protein 6.1 gm/dL (5.7-8.2); eGFR > 60 See Note
[2024-05-02] MEDS: PANTOPRAZOLE 40 MG TABLET PO (08:17)
[2024-05-02] MEDS: INSULIN LISPRO (AdmeLOG) 1 UNIT/0.01 ML UNIT SC ×2 (08:17→11:24)
[2024-05-02] MEDS: THIAMINE 100 MG TABLET PO (08:17)
[2024-05-02] MEDS: FOLIC ACID 1 MG TABLET PO (08:17)
[2024-05-02] MEDS: HEPARIN SOD INJ 5000 UNIT/ML VIAL SC (08:17)
--- NOTE | 2024-05-02 08:53 | PC.SS ---
Follow up note: Pt is possible d/c for tomorrow if he tolerates diet. Pt will return home upon dc.
[2024-05-02] MEDS: HYDROcodone/APAP 5/325 TABLET 1 TAB PO ×2 (10:06→14:33)
--- NOTE | 2024-05-02 12:58 | PC.SS ---
SS met with patient regarding d/c plan. Pt is alert/oriented. Pt was admitted for. Pt confirmed demographic and contact information is correct on facesheet. Pt resides with . Pt ambulates independently without assistance or DME. Pt is ok with all ADLs. 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 Patient?s pharmacy of choice is [facility] on [address]. Pt named his , Lisa Godoy medical decision maker if unable. Patient?s choice is to return home upon d/c. Pt does not have an advance directive, SS offered, and pt declined. Pt states he is diabetic but does not have glucometer/test strips. Pt states he takes oral insulin for his diabetes. Pt states he last followed up with PCP 2 months ago. D/C plan: Return home Next of Kin: Lisa Godoy, , phone# [phone] PCP: Dr. Tripp Aguiar Address: Correct on facesheet
--- NOTE | 2024-05-02 15:44 | PC.SS ---
Pt is on [facility] protocol. SS met with pt to offfer community resources. Pt states he does not drink too much. Pt states he drinks wine everyday for the past 4-5 months. SS offered pt community resources for AA meetings and pt refused. Pt is aware where to locate AA meeting if needed.
--- NOTE | 2024-05-02 16:09 | ESDS_ITS ---
<Statement entered by Kareen Lux DO - 05/03/24 12:41> I, Kareen Lux DO, attest that I was physically present for the wang portions of the service and evaluated the patient with the resident and I reviewed and discussed the case with the resident and agree with the resident's findings and plans of care as documented above <Statement entered by Nataliya Anderson MD - 05/02/24 16:23> Patient was seen and examined at bedside. Today patient clinically stable, tolerating oral feeds, IV fluid was stopped patient will be discharged on p.o. [place], will switch his losartan/hydrochlorothiazide to losartan only and increase his amlodipine from 5 mg to 10 mg due to the increased risk of pancreatitis with hydrochlorothiazide. Counseling for alcohol abuse was done. - Patient's plan and care discussed with my attending, Dr. Jose J Anderson MD Internal Medicine PGY-2 Planned Discharge Date 05/02/24 DS: Providers Provider Date of admission: 04/30/24 21:43 Primary care physician: Tripp Aguiar MD Admitting Provider: Jalen Gómez MD Attending Provider on Admission: Kareen Lux DO Attending Provider on DC: Kareen Lux DO Discharging Provider: Kareen Lux DO DS: Diagnosis Problem List Completed Was Problem List Reviewed/Reconciled?: Yes Hospital Course Hospital Course Hospital course: Patient is a 48-year-old male with past medical history of alcohol use disorder, type 2 diabetes, hypertension, depression, and anxiety who presented to the ED on 04/30/2024 with 1 day of nausea, vomiting, and constant left upper quadrant abdominal pain radiating to the mid-abdomen, following excessive consumption of alcohol. Patient reports poor PO intake due to the pain. Last drink was a half glass of wine around 12 AM, 04/30/2024. Last vomited this morning however has been more dry heaves. Vomitus was clear with no evidence of blood. Last bowel movement was yesterday and normal. He reports drinking an average of about 2-3 bottles of wine daily and states that he has been drinking this much to self- medicate due to chronic back pain and to help him sleep. He was admitted for pancreatitis 2 years ago after a similar scenario. He does endorse a history of alcohol withdrawal tremors.In the ED initial vitals were BP 175/122, HR 91, RR 22, Temp 97.8, saturating well on room air. Labs significant for lipase level of 853. Triglycerides normal. Other labs included WBC 10.6 with neutrophilic shift, Hgb 16.8, Plt 117k, mild hyponatremia corrected 133, creatinine 1.4, total bilirubin 1.3, mild AST elevation 58. Alcohol level <3.0. CT abdomen/pelvis with contrast showed severe acute pancreatitis. Gallbladder US showed normal. In the ED, patient was given ondansetron 4 mg IV x1, 1 L NS, morphine 5 mg IV x1, hydromorphone 1 mg x1, hydralazine 10 mg IV x1, ketorolac 30 mg IV x1. While admitted patient was on 200 mL an hour of NS. Patient was also given clear liquid diet and diet was advanced to PUD diet. Patient tolerated well with no abdominal pain, nausea, vomiting. Patient denies significant tremor, nausea, vomiting, anxiety, hallucinations, seizures. CIWA 1 for minimal tremor. patient was consulted to not take his HCTZ due to its association with pancreatitis. He was given [place] fives to take at home for pain. Patient is stable for discharge. #Acute alcoholic pancreatitis # Pre-renal KARLA, resolved #Hyperbilirubinemia-resolved #Alcohol use disorder #History of hypertension #History of type 2 diabetes We appreciate the opportunity involved with your care. We wish you the very best. The patient's plan was discussed with attending Dr. Lux and senior resident Justin Gary DO PGY1 Internal Medicine Time Spent with Patient Time attestation: Total time spent providing and/or coordinating discharge services: Time spent: Greater than 30 minutes Exam Vital Signs Temp Pulse Resp BP Pulse Ox O2 Del Method 97.7 F 107 H 15 152/95 H 97 Room Air 05/02/24 15:54 05/02/24 15:54 05/02/24 15:54 05/02/24 15:54 05/02/24 15:54 05/02/24 11:33 Narrative Exam Physical Exam GENERAL: NAD, NC/AT, responsive/cooperative. A&Ox3 HEENT: Moist mucosa. Eyes open, symmetrical, & clear CARDIO: No chest pain on palpation. Heart RRR, no obvious murmurs PULM: No noted coughing/dyspnea. Lungs CTA B/L, no R/W/R GI: Abdomen soft, nondistended, mild tenderness in epigastric region with palpation. BSx4 SKIN/MSK/EXT: No wounds/rashes/edema/amputations, no pain on palpation. Pedal pulses present B/L NEURO: AAOx3, no focal neuro deficits, able to move all 4 extremities Discharge Plan Plan Patient Disposition: HOME (Self Care) Patient condition on transfer: Stable and Benefits outweigh risks Care Plan Goals: Follow up with your provider within one week from discharge Avoid alcohol as it the main risk factor for developing acute pancreatitis Stop using your blood pressure medications and use the new prescribtion Losartan 100mg per day, and Amlodipin 10mg per day In case of an emergency please return to the ED as soon as possible Prescriptions/Referrals Prescriptions/Med Rec: New hydrocodone-acetaminophen 5-325 mg Tablet 1 tab PO Q6HR MDD 20mg PRN (Reason: Pain Scale 4-10(Mod-Sev) 4 Days Qty: 16 0RF folic acid 1 mg Tablet 1 mg PO BID 14 Days Qty: 28 0RF thiamine mononitrate (vit B1) 100 mg Tablet 100 mg PO BID 7 Days Qty: 14 0RF Continued pantoprazole [Protonix] 40 mg Tablet,Delayed Release (Dr/Ec) 40 mg PO QDAY Discontinued amlodipine [Norvasc] 5 MG tablet 5 mg PO QPM Qty: 0 Losartan/Hydrochlorothiazide * (HYZAAR 100/25 *) 1 EACH tablet 1 tab PO QDAY Qty: 0 Referrals: Tripp Aguiar MD [Primary Care Provider] - Patient/Caregiver Discharge Instructions Discharge Activity: activity as tolerated Education Materials: Understanding Pancreatitis, Pancreatitis Acute Dc Print Language: Green[place]ic Stand Alone Forms: Kelley Award Info., Patient Portal Info Letter Discharge Order Discharge Orders: Discharge (Routine); Ordered 05/02/24 Ordered By: Nataliya Anderson Quality Discharge Quality Measures VTE prophylaxis
== END 2024-05-02 16:55 | disposition home or self-care (01) | DRG 439 ==
LOC: SERX 19:46 → SERHOLD 22:12 → S3NX 05-01 02:28
PROVIDERS: Nurse Practitioner Family; Student in an Organized Health Care Education/Training Program; Admitting Provider Internal Medicine; Emergency Provider Emergency Medicine; PCP Internal Medicine; Visit Provider Internal Medicine
DX: K85.20 Alcohol induced acute pancreatitis without necrosis or infection (principal); E87.1 Hypo-osmolality and hyponatremia; N17.9 Acute kidney failure, unspecified; E11.9 Type 2 diabetes mellitus without complications; I10 Essential (primary) hypertension; F32.A Depression, unspecified; F41.9 Anxiety disorder, unspecified; G89.29 Other chronic pain; Z87.891 Personal history of nicotine dependence; F10.10 Alcohol abuse, uncomplicated; Z79.84 Long term (current) use of oral hypoglycemic drugs
CPT/HCPCS: 36415; 74177; 76705; 80053; 80061; 80320; 83690; 83735; 84100; 85025; 85610; 85730; 93005; 96374; 96375; 96376; 99285; A4649; J0360; J1643; J1815; J1885; J2270; J2405; J3411; J3475; J3490; J7030; Q9967; A9270; G0480; J1644; J1920

== ENCOUNTER → 2024-10-04 | Outpatient (CLI) | payer BC, SELFPAY ==
[2024-10-04 15:12] LABS: Collection Type, Urine Clean Catch
[2024-10-04 16:54] LABS: Bilirubin,Urine Negative (Negative); Blood,Urine Negative (Negative); Clarity,Urine Clear (Clear/Hazy); Color,Urine Lt-Yellow (Lt Yel-Yel); Glucose, Urine 4+ (Negative); Ketones,Urine Negative (Negative); Leukocyte Esterase,Urine Negative (Negative); Nitrite,Urine Negative (Negative); PH,Urine 6.5 (5.0-7.0); Protein,Urine Negative (Neg - Trace); RBC,Urine 2 /hpf (0-3); Specific Gravity,Urine 1.024 (1.001-1.035); Squamous Epithelial Cell,Urine < 1 /hpf (0-5); Urobilinogen,Urine Negative mg/dL (0.0-1.0); WBC,Urine 1 /hpf (0-5)
== END | disposition home or self-care (01) ==
PROVIDERS: Referring Provider Urology; Visit Provider Urology
DX: T83.490A Other mechanical complication of implanted penile prosthesis, initial encounter (principal)
CPT/HCPCS: 81001